=== PATIENT | female | born 1955 | race Two or more races ===

== ENCOUNTER 2022-03-26 13:30 | Inpatient (IN) | payer MEDICAID, OTHER ==
[~2022-03-26] VITALS: Ht 160 cm; Wt 45.3 kg
[2022-03-26 15:54] LABS: Basophils # (auto) 0.1 10 ^3/uL (0-0.2); Basophils % (auto) 1.2 % (0.0-2.0); Eosinophils # (auto) 0.1 10 ^3/uL (0-0.8); Eosinophils % (auto) 1.8 % (0.0-7.0); Hematocrit 37.6 % (36.0-46.0); Hemoglobin 13.5 g/dL (12.2-16.2); Lymphocytes # (auto) 2.8 10 ^3/uL (0.4-5.4); Mean Corpuscular Hemoglobin 33.3 pg (28.0-32.0); Mean Corpuscular Volume 92.6 fL (80.0-100.0); Monocytes # (auto) 0.3 10 ^3/uL (0-1.3); Monocytes % (auto) 4.9 % (0.0-12.0); Neutrophils # (auto) 2.7 10 ^3/uL (1.6-8.6); Neutrophils % (auto) 45.1 % (37.0-80.0); Nucleated Red Blood Cells % 0.1 %; Red Blood Cells 4.06 10^6/uL (4.0-5.20); Red Cell Distribution Width 12.9 % (11.8-14.3); White Blood Cell 5.9 10^3/uL (4.4-10.8)
[2022-03-26 16:07] LABS: Albumin 3.8 g/dL (3.4-5.0); Calcium 8.7 mg/dL (8.5-10.1); Potassium 3.8 mmol/L (3.5-5.1)
[2022-03-26 16:09] LABS: BUN/Creatinine Ratio 19.5
[2022-03-26 16:13] LABS: Bilirubin, Total 0.2 mg/dL (0.2-1.0); Total Protein 7.7 g/dL (6.4-8.2)
[2022-03-26] MEDS ORDERED: NITROGLYCERIN 0.4 MG SL TAB SL PRN (17:00)
[2022-03-26] MEDS ORDERED: MORPHINE SULFATE INJ 2 MG/ml SYRG IV PRN ×2 (17:00→21:15)
[2022-03-26] MEDS ORDERED: ACETAMINOPHEN 500 MG TAB PO ONE (17:44)
[2022-03-26] MEDS ORDERED: hydrALAZINE HCL 25 MG TAB PO PRN (21:15)
[2022-03-26] MEDS ORDERED: FAMOTIDINE (10MG/ML) 2ML VL IV ONE (21:15)
[2022-03-26] MEDS ORDERED: ACETAMINOPHEN 325 MG TAB PO PRN (21:15)
[2022-03-26] MEDS ORDERED: ASPirin 81 mg TAB PO ONE (21:15)
[2022-03-26] MEDS ORDERED: DOCUSATE SOD 100 MG CAP PO PRN (21:15)
[2022-03-26] MEDS ORDERED: ATORVASTATIN 20 MG TAB PO ONE (21:15)
[2022-03-26] MEDS ORDERED: METOPROLOL SUCCINATE XL 50 MG TAB PO ONE (21:15)
[2022-03-26] MEDS ORDERED: BENAZEPRIL HCL 10 MG TAB PO ONE (21:15)
[2022-03-26] MEDS ORDERED: HYDROcodone-ACET 5/325MG TAB PO PRN (21:15)
[2022-03-26] MEDS ORDERED: LORazepam 0.5 MG TAB PO PRN (21:15)
[2022-03-26] MEDS ORDERED: ONDANSETRON HCL 4 MG/2 ML VIAL IV PRN (21:15)
[2022-03-26 22:09] VITALS: BP 152/75
[2022-03-26] MEDS ORDERED: LOSA-69 PO (22:19)
[2022-03-26] MEDS: ATORVASTATIN 20 MG TAB PO SCH (22:45)
[2022-03-27 01:34] LABS: INR 1.02 (0.9-1.15)
[2022-03-27 01:41] LABS: Magnesium 2.4 mg/dL (1.6-2.6); Phosphorus 3.1 mg/dL (2.5-4.90)
[2022-03-27 04:54] VITALS: BP 130/71
[2022-03-27 06:17] LABS: Basophils # (auto) 0.1 10 ^3/uL (0-0.2); Basophils % (auto) 1.1 % (0.0-2.0); Eosinophils # (auto) 0.1 10 ^3/uL (0-0.8); Eosinophils % (auto) 2.3 % (0.0-7.0); Hematocrit 35.7 % (36.0-46.0); Hemoglobin 12.6 g/dL (12.2-16.2); Lymphocytes # (auto) 3.1 10 ^3/uL (0.4-5.4); Lymphocytes % (auto) 52.7 % (10.0-50.0); Mean Corpuscular Hemoglobin 32.4 pg (28.0-32.0); Mean Corpuscular Hgb Conc. 35.3 g/dL (32.0-36.0); Mean Corpuscular Volume 91.8 fL (80.0-100.0); Monocytes # (auto) 0.4 10 ^3/uL (0-1.3); Neutrophils # (auto) 2.1 10 ^3/uL (1.6-8.6); Neutrophils % (auto) 36.9 % (37.0-80.0); Nucleated Red Blood Cells % 0.1 %; Red Blood Cells 3.89 10^6/uL (4.0-5.20); Red Cell Distribution Width 12.5 % (11.8-14.3); White Blood Cell 5.8 10^3/uL (4.4-10.8)
[2022-03-27 06:32] LABS: INR 1.03 (0.9-1.15); Partial Thromboplastin Time 28.8 sec (23.6-33.0)
[2022-03-27 06:36] LABS: Magnesium 2.2 mg/dL (1.6-2.6); Potassium 4.1 mmol/L (3.5-5.1); Uric Acid 4.2 mg/dL (2.6-6.0)
[2022-03-27 06:48] LABS: Albumin 3.4 g/dL (3.4-5.0); BUN/Creatinine Ratio 16.4; Bilirubin, Total 0.4 mg/dL (0.2-1.0); CRP High Sensitivity 0.09 mg/dL (< 0.3); Calcium 8.4 mg/dL (8.5-10.1)
[2022-03-27 08:54] LABS: Urine Bacteria FEW /hpf (None Seen); Urine Blood Negative /uL (Negative); Urine Mucus FEW (None Seen); Urine Specific Gravity 1.015 (1.001-1.035); Urine WBC 3 /hpf (0 - 5)
[2022-03-27 09:06] LABS: Alcohol, Urine < 3.0 mg/dL (0-10); Amphetamine Screen, Urine NEGATIVE (NEGATIVE); Barbiturate Scree,Urine NEGATIVE (NEGATIVE); Benzodiazephine Screen, Urine NEGATIVE (NEGATIVE); Cannabinoid Screen, Urine NEGATIVE (NEGATIVE); Cocaine Screen, Urine NEGATIVE (NEGATIVE); Opiate Scree,Urine NEGATIVE (NEGATIVE); Phencyclidine Screen, Urine NEGATIVE (NEGATIVE); Protein, Urine 9.2 mg/dL (0.0-11.9)
[2022-03-27 09:07] VITALS: BP 101/57
[2022-03-27] MEDS: FAMOTIDINE (10MG/ML) 2ML VL IV SCH (10:00)
[2022-03-27] MEDS: BENAZEPRIL HCL 10 MG TAB PO SCH (10:00)
[2022-03-27] MEDS: METOPROLOL SUCCINATE XL 50 MG TAB PO SCH (10:00)
[2022-03-27 10:41] LABS: Phosphorus 3.8 mg/dL (2.5-4.90)
[2022-03-27] MEDS: ENOXAPARIN SOD 40 MG/0.4 ML SYRINGE SC SCH (11:14)
[2022-03-27] MEDS: ASPirin 81 mg TAB PO SCH (11:14)
[2022-03-27 12:52] VITALS: BP_SYST 117; BP_SYST 138; BP_DIAS 58; BP_DIAS 65; BP_DIAS 70
[2022-03-27 16:14] VITALS: BP_SYST 102; BP_SYST 106; BP_SYST 108; BP_DIAS 58; BP_DIAS 69; BP_DIAS 77
[2022-03-27] MEDS ORDERED: ISOS10TA45 PO (20:38)
[2022-03-27] MEDS ORDERED: ASPI81CH74 PO (20:38)
[2022-03-27] MEDS: ATORVASTATIN 20 MG TAB PO SCH (21:57)
[2022-03-28] MEDS: BENAZEPRIL HCL 10 MG TAB PO SCH (10:00)
[2022-03-28] MEDS: FAMOTIDINE (10MG/ML) 2ML VL IV SCH (10:00)
[2022-03-28] MEDS: ASPirin 81 mg TAB PO SCH (10:00)
[2022-03-28] MEDS: ENOXAPARIN SOD 40 MG/0.4 ML SYRINGE SC SCH (10:00)
[2022-03-28] MEDS: METOPROLOL SUCCINATE XL 50 MG TAB PO SCH (10:00)
[2022-03-28] MEDS ORDERED: ATOR10TA PO (12:02)
[2022-03-28 13:47] VITALS: BP 129/75
== END 2022-03-28 16:34 | disposition home or self-care (01) | DRG 194 ==
LOC: ER 13:30 → TELE 16:58 → TELE-WESTW 20:28
PROVIDERS: ADMIT Hospitalist; ATTEND Internal Medicine
DX: I11.0 Hypertensive heart disease with heart failure (principal); E78.5 Hyperlipidemia, unspecified; I50.43 Acute on chronic combined systolic (congestive) and diastolic (congestive) heart failure; I25.10 Atherosclerotic heart disease of native coronary artery without angina pectoris; Z20.822 Contact with and (suspected) exposure to COVID-19; I16.0 Hypertensive urgency; R07.89 Other chest pain; Z53.29 Procedure and treatment not carried out because of patient's decision for other reasons
CPT/HCPCS: 36415; 70450; 70551; 71045; 71111; 73502; 80053; 80061; 80307; 81001; 82550; 82728; 83036; 83615; 83690; 83735; 83880; 84100; 84156; 84443; 84484; 84550; 85025; 85379; 85610; 85652; 85730; 86141; 87040; 87070; 87086; 87205; 93005; 93306; 93886; 97163; 99291; G0378; J3490